=== PATIENT | male | born 1975 | race Caucasian/White ===

== ENCOUNTER 2020-10-14 20:05 | Emergency (ER) | payer OTHER, BC ==
[~2020-10-14] VITALS: Ht 177.8 cm; Wt 78.0 kg
[~2020-10-14 20:05] MED LIST: ATENOLOL25 MG PO
[2020-10-14] MEDS ORDERED: METFORMIN HCL500 M1 PO (21:23)
[2020-10-14] MEDS ORDERED: AMLODIPINE BESYL5 MG PO (21:23)
[2020-10-14] MEDS ORDERED: GLIPIZIDE5 MG PO (21:23)
[2020-10-14] MEDS ORDERED: HYDROCHLOROTH12.5 MG (21:24)
[2020-10-14] MEDS ORDERED: OXYCODONE-ACET1 EAC1 PO (21:24)
[2020-10-14] MEDS ORDERED: LOSARTAN POTAS100 MG PO (21:24)
[2020-10-15] MEDS ORDERED: FLOMAX0.4 MG PO (00:04)
[2020-10-15] MEDS ORDERED: ONDANSETRON ODT8 MG PO (00:04)
[2020-10-15] MEDS ORDERED: PERCOCET 5-3251 EACH PO (00:04)
== END 2020-10-15 00:30 | disposition home or self-care (01) ==
LOC: ED 20:05
DX: N13.2 Hydronephrosis with renal and ureteral calculous obstruction (principal); I10 Essential (primary) hypertension; Z87.891 Personal history of nicotine dependence; Z79.899 Other long term (current) drug therapy; Z79.84 Long term (current) use of oral hypoglycemic drugs; Z79.891 Long term (current) use of opiate analgesic
CPT/HCPCS: 74176; 80053; 81001; 85025; 96374; 96375; 96376; 99284-25; J1170; J1885; J2405

== ENCOUNTER 2021-10-07 05:30 | Day surgery (SDC) | payer OTHER, BC ==
[~2021-10-07] VITALS: Ht 177.8 cm; Wt 123.2 kg
[~2021-10-07 05:30] MED LIST changes: +AMLODIPINE BESYL5 MG PO; +FLOMAX0.4 MG PO; +GLIPIZIDE5 MG PO; +HYDROCHLOROTH12.5 MG; +LOSARTAN POTAS100 MG PO; +METFORMIN HCL500 M1 PO; +ONDANSETRON ODT8 MG PO; +OXYCODONE-ACET1 EAC1 PO; +PERCOCET 5-3251 EACH PO
[2021-10-07] MEDS ORDERED: HYDROCODON-ACE1 EA11 PO (08:20)
[2021-10-07] MEDS ORDERED: DICLOFENAC SODI75 MG PO (08:20)
--- NOTE | 2021-10-07 08:35 | NUR ---
10/07/21 0835 Sheets,Holly 0823 PT ARRIVED TO PACU ON 6L VIA MASK WITH ORAL AIRWAY IN PLACE. O2 SAT LOW 90S, JAW THRUST USED OFF AND ON. RESP EVEN AND UNLABORED. PT NONAROUSABLE. 0830 CBG 194.
--- NOTE | 2021-10-07 09:32 | NUR ---
PT IS ALERT, ORIENTED AND SUPPORTED BY HIS ENRIKE-WHO WILL REMAIN FOR DC. ALL QUESTIONS ASKED ANSWERED. PT SEEMS COMFORTABLE AND INFORMED. GAVE BLESSING AND WILL FOLLOW
--- NOTE | 2021-10-07 10:45 | NUR ---
1030-PATIENT BACK TO ROOM FROM PACU ON 2L VIA IN. RECEIVED REPORT FROM VICKEY DURAN. PATIENT IS AWAKE. RESP EVEN AND UNLABORED. RATES PAIN 2/10. DENIES NAUSEA. DRESSING ARE CLEAN, DRY, AND INTACT. CRYO CUFF IN PLACE. PATIENT EATING PUDDING AND DRINKING WATER. IN ROOM.
--- NOTE | 2021-10-07 11:11 | NUR ---
PATIENT UP TO BATHROOM WITH RN ASSIST. GAIT STEADY AND TOLERATED WELL. PATINET ABLE TO VOID. PATIENT BACK TO ROOM DOING WELL.
--- NOTE | 2021-10-07 11:15 | NUR ---
[id number]- TITRATED O2 OFF. O2 SATS ON RA BETWEEN 64%-96%. PATINET ENCOURAGED TO TAKE DEEP BREATHS AND COUGH.
--- NOTE | 2021-10-07 11:45 | NUR ---
1125-PATIENT AWAKE AND SITTING ON THE SIDE OF THE BED. RESP EVEN AND UNLABORED. VSS. RATES PAIN 1/10. DENIES NAUSEA. CRYO CUFF IN PLACE. DRESSING IS CLEAN, DRY, AND INTACT. PATIENT IS READY TO GO HOME.
--- NOTE | 2021-10-07 11:50 | NUR ---
1135-PROVIDED PATIENT AND WITH DISCHARGE INSTRUCTIONS. ALL QUESTIONS ANSWERED. PATIENT AMBULATES TO WHEELCHAIR. RIDE PROVIDED TO FRONT OF HOSPITAL.
--- NOTE | 2021-10-18 13:01 | OR ---
[facility] [address], [place] [address] Signed DATE OF OPERATION: 10/07/2021 SURGEON: Drea Haro MD PREOPERATIVE DIAGNOSIS: Partial rotator cuff tear/bursitis, left shoulder. POSTOPERATIVE DIAGNOSIS: Partial rotator cuff tear/bursitis, left shoulder. PROCEDURE PERFORMED: Left shoulder arthroscopy with subacromial decompression. DRAFTING DETAILER: None. ANESTHESIA: General. BLOOD LOSS: Minimal. BRIEF HISTORY: Jordan is a 46-year-old gentleman with progressive worsening of shoulder pain, unresponsive to injections, anti-inflammatories, and therapy. Risks and benefits of operative treatment discussed at length. He elected to proceed. Once consent was obtained, he was taken to the operating room. After adequate anesthesia, he was placed in a beach chair position. All downside pressure points well padded. The left shoulder was prepped and draped in a standard sterile fashion. Shoulder was injected with 15 mL 0.25% Marcaine with epinephrine as was the subacromial space. The standard posterior portal was made, the scope was introduced into the shoulder. ARTHROSCOPIC FINDINGS: Glenohumeral surface was found to be intact. Biceps, biceps anchor, and labrum were intact. The undersurface of the rotator cuff showed some minor fraying in the anterior supraspinatus. The subscapularis was intact. The subacromial bursa was noted to be extensively thickened with marked bursitis throughout. We had difficulty initially establishing visualization. Eventually, this showed a partial tear of the supraspinatus only about 20%. The undersurface of the acromion was type 1. Electronically Signed By: DREA HARO MD 10/08/21 0812 PATIENT NAME: JORDAN MATAMOROS OPERATIVE REPORT DATE OF : 73 REPORT #: [id number] PHYSICIAN: DREA HARO MD PCP: ELVIRA SCHWARZ PAC REPORT IS CONFIDENTIAL AND NOT TO BE RELEASED WITHOUT AUTHORIZATION [facility] [address], [place] [address] Signed DESCRIPTION OF PROCEDURE: Diagnostic arthroscopy was undertaken as noted above. The scope was then withdrawn, placed into the subacromial space. The standard lateral portal was established and with extensive use of the shaver and Mitek vapor, we were able to remove the bursa, which was again extensively thickened, inflamed and fibrotic. Once this was relieved, we were able to visualize the acromion and the rotator cuff. The rotator cuff was found to be intact with exception of a minor bursal sided tear. The undersurface of the acromion was flat. Once all the bursa was removed, the scope was withdrawn, portals were closed with 3-0 nylon and dressed with Allevyn and OpSite. He was awakened and taken to the recovery room in satisfactory condition. All sponge, needle, and instrument counts were correct. Drea Haro MD BA/CHELA /[id number] Copies: ~ Electronically Signed By: DREA HARO MD 10/08/21811 PATIENT NAME: JORDAN MATAMOROS OPERATIVE REPORT DATE OF : 73 REPORT #: [id number] PHYSICIAN: DREA HARO MD PCP: ELVIRA SCHWARZ REPORT IS CONFIDENTIAL AND NOT TO BE RELEASED WITHOUT AUTHORIZATION
== END 2021-10-07 11:35 | disposition home or self-care (01) ==
LOC: DS 05:30
PROVIDERS: ATTEND Specialist
PROC: 0RBK4ZZ Excision of Left Shoulder Joint, Percutaneous Endoscopic Approach (ICD-10-PCS; principal; 2021-10-07 07:00)
DX: M75.112 Incomplete rotator cuff tear or rupture of left shoulder, not specified as traumatic (principal); M75.52 Bursitis of left shoulder; I10 Essential (primary) hypertension; I25.10 Atherosclerotic heart disease of native coronary artery without angina pectoris; M75.32 Calcific tendinitis of left shoulder
CPT/HCPCS: 36415; 64415; 76942; 84132; C1713; J0690; J1100; J1885; J2001; J2250; J2405; J2704; J2795; J3010; J7121

== ENCOUNTER 2024-03-04 07:56 | Day surgery (SDC) | payer OTHER, BC ==
[~2024-03-04] VITALS: Ht 172.7 cm; Wt 105.0 kg
[~2024-03-04 07:56] MED LIST changes: +DICLOFENAC SODI75 MG PO; +HYDROCODON-ACE1 EA11 PO; +IBLOOD GLUCOSE TEST STRIP 1 EA TEST VI PRN; +K-TAB ER20 MEQ PO; +LACTATED RINGER'S 1,000 ML IV SCH; +LIDOCAINE HCL 1% 5 ML SDV INJ ONE; +MIDAZOLAM HCL 5 MG/5 ML VIAL IV PRN; +OZEMPIC1 MG/0.71 SQ; +TADALAFIL5 M1 PO; +fentaNYL citrate 100 MCG/2 ML VIAL IV PRN
[2024-03-04 08:23] VITALS: BP 125/84
[2024-03-04 08:28] VITALS: BP 125/84
[2024-03-04] MEDS ORDERED: fentaNYL citrate 100 MCG/2 ML VIAL ONE (09:04)
[2024-03-04] MEDS ORDERED: MIDAZOLAM HCL 5 MG/5 ML VIAL ONE (09:04)
--- NOTE | 2024-03-04 11:06 | NUR ---
03/04/24 1106 Yissel Cartagena 1031 PT ARRIVED IN PACU SLEEPY. ABD SOFT. 1045 SNORING. 1100 AWAKENS TO VERBAL STIMULI, THEN FALLS BACK TO SLEEP.
[2024-03-04 11:16] VITALS: BP 125/89
--- NOTE | 2024-03-04 13:21 | OR ---
[facility] [address] [place], [place] [address] Signed DATE OF OPERATION: 03/04/2024 SURGEON: Flako Oliver MD PREOPERATIVE DIAGNOSES: 1. Left lower quadrant abdominal pain. 2. Paternal grandfather colon cancer in his 60s. 3. Hemorrhoids. 4. History of irritable bowel syndrome with constipation and diarrhea, although better following intentional weight loss. 5. Negative colonoscopy in 2013 at age 38 in [place], [place]. POSTOPERATIVE DIAGNOSIS: 6 mm polyp at 50 cm in left colon. PROCEDURE: Colonoscopy with hot biopsy. ESTIMATED BLOOD LOSS: None. INDICATIONS: Jordan is a 49-year-old gentleman, asked to see me for colonoscopy. He said he was about age 38 around 2012 when he underwent an initial colonoscopy in [place], [place]. He said it was negative. He was having a lot of stomach issues and was told he had irritable bowel syndrome with alternating constipation diarrhea. He said he has lost 60 pounds and he said that he is doing much better. There was also some mention of hemorrhoids in his progress notes. He said his paternal grandfather had colon cancer in his 60s. He has also had some trouble with his left testicle and epididymal cyst for which he has seen Dr. Luiz Parra, who is a urologist over the [facility]. We had sent him for an ultrasound of his groin and also left lower quadrant for rule out a spigelian hernia. We were unable to pull that up today on the computer system. In the office, I gave him a pamphlet on colonoscopy. We had reviewed the nature of the test. There is risk including, but not limited to gas bloating, crampy abdominal pain, bleeding, perforation requiring surgery, and missed diagnosis. We also reviewed the written instructions for the bowel prep line by line. We also reviewed his medications. He also understands the need for IV conscious sedation. He had expressed understanding wished to proceed. PROCEDURE IN DETAIL: Electronically Signed By: FLAKO OLIVER MD 03/04/24 1321 PATIENT NAME: JORDAN MATAMOROS OPERATIVE REPORT DATE OF : 73 REPORT #: [id number] PHYSICIAN: FLAKO OLIVER MD PCP: LEILA SCHWARZ PAC REPORT IS CONFIDENTIAL AND NOT TO BE RELEASED WITHOUT AUTHORIZATION [facility] [address] [place], [place] [address] Signed Jordan was taken into our endoscopy suite and placed in the left lateral decubitus position. He was given IV sedation with 150 mcg of fentanyl and 8 mg of Versed. Jordan was either awake, moaning in pain and moving around or he was asleep and breathing. It was a little difficult to complete the colonoscopy. However, he is technically not particularly difficult to pass the scope. I think he would be much better served in the future with moderate anesthesia care and propofol infusion. We had done a digital rectal exam, really nothing in the way of any external hemorrhoids. There was no masses noted. He had good sphincter tone. The adult colonoscope was introduced and advanced all around into the cecum under direct visualization of the camera. We could easily see the appendiceal orifice and ileocecal valve. The scope was then slowly withdrawn. We took several pictures throughout for photodocumentation. He had a 6 mm polyp that we removed at 50 cm in the left colon. We utilized hot biopsy forceps. There was no diverticulosis. The rectum was unremarkable. We really did not see much in the way of any internal hemorrhoid tissue. After this, the gas was suctioned out and the colonoscope removed. Overall, Jordan tolerated the procedure well. RECOMMENDATIONS: I will see Jordan back in my office in 7 to 14 days to review his biopsy results. We need to review the ultrasound of his left lower abdomen. We also need to consider monitored anesthesia care in the future for endoscopy. Flako Oliver MD ALB/MODL /[id number] cc: MD Leila Maldonado PA-C Copies: FLAKO OLIVER MD Electronically Signed By: FLAKO OLIVER MD 03/04/24 1321 PATIENT NAME: JORDAN MATAMOROS OPERATIVE REPORT DATE OF : 73 REPORT #: [id number] PHYSICIAN: FLAKO OLIVER MD PCP: LEILA SCHWARZ PAC REPORT IS CONFIDENTIAL AND NOT TO BE RELEASED WITHOUT AUTHORIZATION [facility] [address] [facility] [place] [address] Signed LEILA SCHWARZ ~ Electronically Signed By: FLAKO OLIVER MD 03/04/24 1321 PATIENT NAME: JORDAN MATAMOROS OPERATIVE REPORT DATE OF : 73 REPORT #: [id number] PHYSICIAN: FLAKO OLIVER MD PCP: LEILA SCHWARZ REPORT IS CONFIDENTIAL AND NOT TO BE RELEASED WITHOUT AUTHORIZATION
--- NOTE | 2024-03-06 12:43 | PATH ---
[facility] [address] [place], [place] [address] Signed SPECIMEN(S): A DESCENDING COLON POLYP AT 50 CM SPECIMEN SOURCE: A. DESCENDING COLON POLYP AT 50 CM CLINICAL HISTORY: History of hemorrhoids, family history of colon cancer FINAL PATHOLOGIC DIAGNOSIS: Descending colon polyp at 50 cm: - Tubular adenoma (one fragment). - Hyperplastic polyp (one fragment). JVR:clv MICROSCOPIC EXAMINATION: Histologic sections of all submitted blocks are examined by light microscopy. These findings, together with the gross examination, support the pathologic diagnosis. GROSS DESCRIPTION: The specimen, labeled and designated "Ugalde, descending colon polyp at 50 cm," is received in formalin and consists of two daniel soft tissue fragments, ranging from 0.2-0.3 cm. Entirely submitted in (A1). VB (under the direct supervision of a pathologist) The Gross Description was prepared using a voice recognition system. The report was reviewed for accuracy; however, sound-alike word errors, addition and/or deletions may occur. If there is any question about this report, please contact Client Services. PERFORMING LABORATORY: Technical component was performed by [facility], [address] [place] [id number] (CLIA# [id number]). Professional interpretation was performed by [facility], [address] [place] [id number] (CLIA#: [id number]). Diagnostician: Mario Turner MD Pathologist Electronically Signed 03/06/2024 PATIENT NAME: SCHUYLER UGALDE PATHOLOGY DATE OF : 73 REPORT #: [id number] PHYSICIAN: AMBER URBINA PCP: ELVIRA SCHWARZ REPORT IS CONFIDENTIAL AND NOT TO BE RELEASED WITHOUT AUTHORIZATION [address] [address] Signed Copies: ~ PATIENT NAME: SCHUYLER UGALDE PATHOLOGY DATE OF : 73 REPORT #: [id number] PHYSICIAN: AMBER URBINA PCP: ELVIRA SCHWARZ PAC REPORT IS CONFIDENTIAL AND NOT TO BE RELEASED WITHOUT AUTHORIZATION
== END 2024-03-04 11:23 | disposition home or self-care (01) ==
LOC: DS 07:56
PROVIDERS: ATTEND Colon & Rectal Surgery
PROC: 0DBG8ZZ Excision of Left Large Intestine, Via Natural or Artificial Opening Endoscopic (ICD-10-PCS; principal; 2024-03-04 09:45)
DX: Z12.11 Encounter for screening for malignant neoplasm of colon (principal); D12.4 Benign neoplasm of descending colon; K63.5 Polyp of colon; E11.9 Type 2 diabetes mellitus without complications; I10 Essential (primary) hypertension; E78.5 Hyperlipidemia, unspecified; K76.0 Fatty (change of) liver, not elsewhere classified; F17.220 Nicotine dependence, chewing tobacco, uncomplicated; E66.01 Morbid (severe) obesity due to excess calories; Z68.33 Body mass index [BMI] 33.0-33.9, adult; Z79.85 Long-term (current) use of injectable non-insulin antidiabetic drugs; Z79.899 Other long term (current) drug therapy; Z91.011 Allergy to milk products; Z98.52 Vasectomy status; Z80.0 Family history of malignant neoplasm of digestive organs
CPT/HCPCS: 99153; G0500; J2250; J3010; J7121